=== PATIENT | male | born 2005 | race Caucasian/White ===

== ENCOUNTER 2023-05-17 18:34 | Emergency (ER) | payer BC, SELFPAY ==
[2023-05-17 18:34] VITALS: BMI 22.2
[2023-05-17 18:38] VITALS: BP 109/72
[2023-05-17 19:10] VITALS: BP 115/61
--- NOTE | 2023-05-17 19:17 | ED.GENMED ---
History of Present Illness
General
Chief Complaint: Trauma Significant Mechanism
Source: patient and family
Time Seen by Provider: 05/17/23 18:57
Travel History
Have you had any contact with someone who has COVID-19?: No
Do you have any symptoms of coronavirus? Fever > 100 degrees, chills, cough, shortness of breath, sore throat, loss of taste or smell, muscle aches, or headache?: No
History of Present Illness
History of Present Illness:
This patient is a 17-year-old male presents emergency department after being hit in the back on the right side with a lacrosse stick intentionally. This caused him to fall down to the ground. He did not hit his head and there was no loss of
consciousness. However, he has pain in the area of impact which is the right lower posterior costal margin, also noted in the corresponding anterior lower costal margin, worse with deep breath or certain movements. He denies dizziness, neck pain,
numbness, tingling, hemoptysis, headache, abdominal pain, nausea, vomiting, or other complaints
Past History
Past History
ED Past Medical History: None
ED Past Surgical History: None
Social History
Tobacco: Non-smoker
Alcohol: Occasional
Drug: None
Personal: Single
Employment: Student
Phy Exam
Physical Exam
Physical Exam:
GENERAL: Alert , in no apparent distress
EYE: pupils equal and reactive, no photophobia
NECK: Supple, no significant adenopathy, no midline tenderness.
ENT: o/p clr, mmm.
CARDIAC: Regular rate and rhythm .
LUNGS: Clear breath sounds bilaterally, no acute respiratory distress, no wheezes/rales/rhonchi. There is a bruise and minimal tenderness to palpation noted at the right inferior lateral costal margin, no associated crepitus, break in skin,
deformity, or other abnormality noted
ABDOMEN: Soft, without focal tenderness, no r/g, no cvat, no abdominal wall bruising
NEUROLOGICAL: Alert and oriented, no focal neuro deficits
SKIN: Warm and dry, skin intact.
MUSCULOSKELETAL: No edema, well perfused.
PSYCH: Normal and appropriate interaction.
Course
Orders/Labs/Results
Orders:
Orders
05/17/23 18:40
CR Ribs-chaitanya 4 Vw W/pa Chest Urgent
Comment:
Reason For Exam: injury
CR Thoracic Spine 3 Views Urgent
Comment:
Reason For Exam: injury
05/17/23 18:42
ECG [Electrocardiogram (*1)] Urgent
Reason for Study: Other
Other Reason for Exam: trauma
EKG- Treatment ONCE
Vital Signs
Initial and Last Documented VS:
Initial Vital Signs
Temp Pulse Resp BP Pulse Ox
98.9 F 96 20 109/72 99
05/17/23 18:38 05/17/23 18:38 05/17/23 18:38 05/17/23 18:38 05/17/23 18:38
Last Documented Vital Signs
Temp Pulse Resp BP Pulse Ox
98.9 F 96 20 109/72 99
05/17/23 18:38 05/17/23 18:38 05/17/23 18:38 05/17/23 18:38 05/17/23 18:38
*Critical Care Note
Total Time (30-74mins, 75-104mins- exclusive of procedures): Not Applicable
Update Note
Update Note:
Patient presents to the Emergency Department with pain after being hit by a stick____
Number and Complexity of Problems Addressed at the Encounter
� Chronic conditions affecting care:
� Acute Exacerbation and/or Progression of Chronic Illness:
� Differential Diagnosis includes: But not limited to rib fracture, pneumothorax, hemothorax, contusion, etc.
Amount and/or Complexity of Data to be Reviewed and Analyzed
� I performed an independent evaluation of and my interpretation is:
EKG:
CT:
Xrays: Read by me, no pneumothorax, no fracture noted
Laboratory Studies:
Other:
� Review of other/old records reveals:
� Clinical information was obtained by an independent historian: Father who is at bedside
� Prescriptions/Medications Considered but not given:
� Further testing considered but not performed:
Risk of Complications and/or Morbidity or Mortality of Patient Management
� Social determinants of health affecting care:
� Discussion with other providers (PCP, Hospitalists, Consultants, etc):
� Escalation of care including admission/observation vs risk of discharge considered: Pulse ox 100%, vital signs normal, chest x-ray negative for acute pathology. Do not find more worrisome etiology of her symptoms beyond
contusion. Pain well-managed. Expect discharge with supportive care.
ED Attending Note
-
Portions of this chart may have been created with voice recognition software.� Occasional wrong word or��sound alike� substitutions may have occurred due to the inherent limitations of voice recognition software.
Discharge Plan
Departure
Patient Disposition: Home (Routine Discharge)
Date of Disposition: 05/17/23
Time of Disposition: 20:22
Patient with high blood pressure during this ER visit?: No
Condition: Good
Discharge Problem:
Contusion
Instructions: Contusion
Referrals:
Alex Thomason, [Family Provider] - Follow up in 2-3 days
Activity Restrictions/Additional Instructions:
IF YOU DEVELOP INCREASING OR NEW PAIN, TROUBLE BREATHING/SHORTNESS OF BREATH, DIZZINESS, BLEEDING, ABDOMINAL PAIN, NUMBNESS, VOMITING, FEVER, OR OTHER WORRISOME SIGNS, PLEASE RETURN TO THE ER IMMEDIATELY.
Interventions
Interventions:
*General Assessment Last Done: 05/17/23 19:11
ED- Fall Risk Assessment Last Done: 05/17/23 19:13
*ED COVID-19 Vaccine History Last Done: 05/17/23 19:11
[2023-05-17 20:00] VITALS: BP 120/51
[2023-05-17 20:35] VITALS: BP 113/56
== END 2023-05-17 20:45 | disposition home or self-care (01) ==
LOC: EMR 18:34
PROVIDERS: EMERGENCY PHYSICIAN Emergency Medicine; FAMILY PHYSICIAN Family Medicine
DX: S20.229A Contusion of unspecified back wall of thorax, initial encounter (principal); W22.8XXA Striking against or struck by other objects, initial encounter; Y93.65 Activity, lacrosse and field hockey
CPT/HCPCS: 99284; 71111; 72072; 93005